=== PATIENT | male | born 1995 | race Caucasian/White ===

== ENCOUNTER 2025-06-26 09:38 | Emergency (ER) | payer BC, SELFPAY ==
[2025-06-26 09:40] VITALS: BP 119/58; PULSE 61; RESP 16; TEMP 36.4; O2SAT 100; BMI 21.9
--- NOTE | 2025-06-26 10:12 | ED_ITS ---
HPI - Abdominal Pain 2 General: Chief Complaint: Abdominal Pain Stated Complaint: R Side ABD Pain Time Seen by Provider: 06/26/25 10:12 History of Present Illness: 30-year-old male presents emergency room with complaint of right sided abdominal pain that began last night. He has noticed up with movements or coughing and gets quite a bit worse. It initially was vaguely on the right side it is more focal to the right lower quadrant now. Does not notice any dysuria urgency or frequency, no hematuria. No hematochezia melena hematemesis coffee-ground emesis. No history of nephrolithiasis. Associated Symptoms: Denies chills, dysuria, fever(s), nausea and vomiting Related Data Previous Rx's ?Medication ?Instructions ?Recorded promethazine 25 mg tablet 25 mg PO Q6H PRN nausea and 06/26/25 vomiting #20 tabs Allergies Allergy/AdvReac Type Severity Reaction Status Date / Time No Known Allergies Allergy Verified 06/26/25 09:46 Review of Systems 2 Const: Denies: fever(s) or chills Card: Denies: chest pain Resp: Denies: dyspnea GI: Reports: abdominal pain; Denies: nausea or vomiting : Denies: dysuria, urinary frequency or urinary urgency Musc: Denies: neck pain or back pain Skin/Breast: Denies: rash Physical Exam 2 Const: GENERAL APPEARANCE: cooperative ORIENTATION/CONSCIOUSNESS: Yes awake, Yes oriented to person, Yes oriented to place and Yes oriented to time HENMT: COMMON NORMALS: normocephalic, atraumatic and hearing grossly normal bilaterally HEAD & SCALP: normocephalic and atraumatic Resp: COMMON NORMALS: normal respiratory effort, No retractions, No use of accessory muscles and clear to auscultation bilaterally AUSCULTATION: clear to auscultation bilaterally Cardio: COMMON NORMALS: regular rate, regular rhythm and No murmurs present (Cardio) RATE: regular rate RHYTHM: regular rhythm GI: COMMON NORMALS: Soft to palpation and No hepatosplenomegaly present A USCULTATION: Yes normoactive bowel sounds PALPATION: Yes Soft to palpation, No Tenderness to palpation present (GI), No Guarding due to palpation present (GI) and Yes No hepatosplenomegaly present Extremity: COMMON NORMALS: normal to inspection, capillary refill normal, no clubbing, cyanosis or edema, no calf tenderness and no pedal edema Neuro: SENSORIUM/ORIENTATION: Yes oriented to person, Yes oriented to place and Yes oriented to time Skin: COMMON NORMALS: no rashes or lesions noted GENERAL SKIN EXAM: no rashes or lesions noted Course 2 Vital Signs: Vital signs: Vital Signs Temperature 97.6 F 06/26/25 09:40 Pulse Rate 54 L 06/26/25 12:07 Respiratory Rate 17 06/26/25 12:07 Blood Pressure 121/71 06/26/25 12:07 Pulse Oximetry 100 06/26/25 12:07 Oxygen Delivery Me thod Room Air 06/26/25 10:16 MDM - Abdominal Pain Medical Decision Making Medical decision making Social determinants: None I reviewed the patient's medical record. I reviewed the patient's current home meds. Alternate historians: None Differential diagnosis: Acute appendicitis, bowel obstruction, enteritis Lab Review: Labs reviewed white count 13.3 with a slight left shift chemistry panel was normal urine did not show any signs of acute cystitis no hematuria Imaging: CT abdomen no acute appendicitis fluid-filled loops of small bowel suggestive of enteritis Assessment of risk Level of risk: Low Hospitalization considerations: Consideration for hospitalization pending CT concern about acute appendicitis Reexamination: Unchanged Assessment and plan: Reviewed findings with the patient. White count not elevated CT does not show acute appendicitis shows signs of enteritis. Clear liquid diet advance as tolerated return if has further problems. Lab Data 06/26/25 10:05 06/26/25 10:05 Labs/Radiology: Radiology Impressions Abdomen/Pelvis CT 06/26/25 10:24 IMPRESSION: 1. No renal obstruction or perinephric stranding. 2. Normal appendix. 3. Increased fluid in the small bowel although no obstruction. Consider acute enteritis. 4. Normal appearance of the gallbladder. 5. Mild splenomegaly. Laboratory Results WBC 13.39 10^3/uL (3.29-11.43) H 06/26/25 10:05 RBC 5.19 10^6/uL (3.85-5.65) 06/26/25 10:05 Hgb 15.70 g/dL (11.27-16.99) 06/26/25 10:05 Hct 44.5 % (37-53) 06/26/25 10:05 MCV 85.7 fl (82-101) 06/26/25 10:05 MCH 30.3 pg (27-33) 06/26/25 10:05 MCHC 35.3 g/dL (30-55) 06/26/25 10:05 RDW 11.9 % (12.1-15.1) L 06/26/25 10:05 Plt Count 213 10^3/cmm (157-399) 06/26/25 10:05 MPV 10.6 fL (7.4-10.4) H 06/26/25 10:05 Neut % (Auto) 80.3 % 06/26/25 10:05 Lymph % (Auto) 12.5 % 06/26/25 10:05 [place] % (Auto) 6.1 % 06/26/25 10:05 Eos % (Auto) 0.7 % 06/26/25 10:05 Baso % (Auto) 0.2 % 06/26/25 10:05 Neut # (Auto) 10.74 10^3/uL (1.8-7.7) H 06/26/25 10:05 Lymph # (Auto) 1.7 10^3/uL (0.8-4.8) 06/26/25 10:05 [place] # (Auto) 0.8 10^3/uL (0.2-0.9) 06/26/25 10:05 Eos # (Auto) 0.1 10^3/uL (0.0-0.8) 06/26/25 10:05 Baso # (Auto) 0.0 10^3/uL (0.0-0.1) 06/26/25 10:05 Nucleated RBC % (auto) 0 % 06/26/25 10:05 Nucleated RBCs # 0.0 /100WBC 06/26/25 10:05 Sodium 139 mmol/L (136-145) 06/26/25 10:05 Potassium 4.0 mmol/L (3.5-5.1) 06/26/25 10:05 Chloride 101 mmol/L (98-107) 06/26/25 10:05 Carbon Dioxide 27 mmol/L (22-29) 06/26/25 10:05 Anion Gap 15.0 (5-19) 06/26/25 10:05 BUN 13 mg/dL (6-20) 06/26/25 10:05 Creatinine 0.8 mg/dL (0.7-1.2) 06/26/25 10:05 GFR Calculation 114.3 mL/min (90-130) 06/26/25 10:05 Glucose 95 mg/dL (65-115) 06/26/25 10:05 Calculated Osmolality 288 mOsm/kg (285-295) 06/26/25 10:05 Calcium 9.5 mg/dL (8.5-10.5) 06/26/25 10:05 Total Bilirubin 0.8 mg/dL (0.15-1.2) 06/26/25 10:05 AST 17 U/L (0-40) 06/26/25 10:05 ALT 8 U/L (0-41) 06/26/25 10:05 Alkaline Phosphatase 65 U/L (40-130) 06/26/25 10:05 Total Protein 7.5 g/dL (6.6-8.7) 06/26/25 10:05 Albumin 5.0 g/dL (3.5-5.2) 06/26/25 10:05 Globulin 2.5 g/dL (1.3-4.6) 06/26/25 10:05 Lipase 14 U/L (13-60) 06/26/25 10:05 Urine Color Yellow (Yellow) 06/26/25 10:05 Urine Appearance Clear (CLEAR) 06/26/25 10:05 Urine pH 8.0 (5-7) A 06/26/25 10:05 Ur Specific [place] 1.011 (1.005-1.030) 06/26/25 10:05 Urine Protein Negative (Negative) 06/26/25 10:05 Urine Glucose (UA) Negative (Normal) 06/26/25 10:05 Urine Ketones Negative (Negative) 06/26/25 10:05 Urine Blood Negative (Negative) 06/26/25 10:05 Urine Nitrate Negative (Negative) 06/26/25 10:05 Urine Bilirubin Negative (Negative) 06/26/25 10:05 Urine Urobilinogen 1.0 mg/dL (Negative) 06/26/25 10:05 Ur Leukocyte Esterase Negative (Negative) 06/26/25 10:05 Urine RBC 0-2 /hpf (0-2) 06/26/25 10:05 Urine WBC 0-5 /hpf (0-5) 06/26/25 10:05 Ur Squamous Epith Cells 0-5 /hpf (0-5) 06/26/25 10:05 Amorphous Sediment Not Reportable 06/26/25 10:05 Urine Bacteria None seen /hpf (NONE) 06/26/25 10:05 Hyaline Casts 0-4 /lpf H 06/26/25 10:05 All radiology interpretation(s) finalized by discharge Discharge Plan Discharge Patient Disposition: Home Clinical Impression: Gastroenteritis Condition: Stable Prescriptions: New promethazine 25 mg tablet 25 mg PO Q6H PRN (Reason: nausea and vomiting) Qty: 20 0RF Discharge Orders: Discharge ED (Routine); Ordered 06/26/25 Ordered By: Vlad Sneed Discharge Diet: Clear Liquid Discharge Activity: Increase activity as tolerated Patient Instructions: Gastroenteritis (ED), Abdominal Pain (ED), Opioid Safety, Pain Management, Patient Portal & Charles Instructions Activity Restrictions/Additional Instructions: Thank you for choosing [facility] for your healthcare needs today. It is very important that you follow up as instructed or that you return to the Emergency Department should you have concerns or if your condition changes or worsens in any way. Emergency department visits are focused on emergent conditions, in some cases you may require further evaluation on an outpatient basis. You were seen in the emergency room with complaint of abdominal pain there was a mild elevation in your white count CT did not show any acute appendicitis. There is signs of irritation of the bowel (gastroenteritis). Recommend clear diet for 24 to 48 hours and advance as tolerated you are given promethazine to use as needed. (Please note that included in your discharge packet is information concerning opioid safety and pain management. This information is given to all patients were discharged from the ER regardless of their discharge diagnosis or the medicines they usually take or are prescribed.) Print Language: Yemeni Coding Level of Care Code ED Jewel Bearing Turner for Radha Gavin
[2025-06-26 10:16] VITALS: BP 117/71; PULSE 57; RESP 16; O2SAT 100
[2025-06-26 10:22] LABS: Hematocrit 44.5 % (37-53); Hemoglobin 15.70 g/dL (11.27-16.99); Mean Corpuscular HGB Conc 35.3 g/dL (30-55); Mean Corpuscular Hemoglobin 30.3 pg (27-33); Mean Corpuscular Volume 85.7 fl (82-101); Nucleated Red Blood Cells % 0 %; Platelet Count 213 10^3/cmm (157-399); Red Blood Count 5.19 10^6/uL (3.85-5.65); White Blood Count 13.39 10^3/uL (3.29-11.43)
--- NOTE | 2025-06-26 10:24 | CT_ITS ---
WS: [id number] CT ABDOMEN AND PELVIS WITH CONTRAST HISTORY: RLQ abd pain TECHNIQUE: Imaging performed of the abdomen and pelvis with IV contrast. Single phase imaging of the abdomen. Coronal and sagittal reformats are submitted. All CT scans at [facility] use at least one of these dose optimization techniques: automated exposure control; mA and/or kV adjustment per patient size (includes targeted exams where dose is matched to clinical indication); or iterative reconstruction. IV CONTRAST: Omnipaque 350; 100 mL IV. Oral contrast: No DLP: 458.93 mGy.cm COMPARISON: None available. Lower thorax: Lung bases are clear. Heart is normal size. Small hiatal hernia. Liver/biliary system: Normal size liver with mild periportal edema. Normal portal vein. No intrahepatic duct dilatation or mass. Gallbladder: Normal. No gallstones or wall thickening. No pericholecystic fluid. Pancreas: Normal size pancreas and pancreatic duct. No adjacent inflammation. Spleen: Spleen is mildly enlarged at 14.4 cm in length. No mass. Adrenal glands: Normal. Right kidney: Normal. Left kidney: Normal. Aorta: Normal. Lymphadenopathy: None. Free fluid: None. GI tract: Stomach is not distended. No small bowel obstruction but there is increased fluid in portions of the small bowel and mild hyperemia of the wall. The appendix is identified and does appear normal. No significant inflammation. No colon obstruction. Abdominal wall: Unremarkable abdominal wall. No hernia. Pelvis: No free fluid or adenopathy within the pelvis. Urinary bladder is well distended. No free fluid in the pelvis. Bones: Unremarkable. CT/CT abdomen pelvis w con* [id number] IMPRESSION: 1. No renal obstruction or perinephric stranding. 2. Normal appendix. 3. Increased fluid in the small bowel although no obstruction. Consider acute enteritis. 4. Normal appearance of the gallbladder. 5. Mild splenomegaly.
[2025-06-26 10:43] LABS: Glucose Urine UA Negative (Normal); Nitrate Urine Negative (Negative); Specific Gravity, Urine 1.011 (1.005-1.030)
[2025-06-26 10:48] LABS: Add Urine Microscopic? YES
[2025-06-26] MEDS: iohexol 350 mg/mL 500 mL Btl (per mL) IV (11:03)
[2025-06-26 11:20] LABS: Alanine Aminotransferase 8 U/L (0-41); Albumin Level 5.0 g/dL (3.5-5.2); Alkaline Phosphatase 65 U/L (40-130); Anion Gap 15.0 (5-19); Aspartate Amino Transferase 17 U/L (0-40); Blood Urea Nitrogen 13 mg/dL (6-20); Calcium 9.5 mg/dL (8.5-10.5); Carbon Dioxide 27 mmol/L (22-29); Chloride 101 mmol/L (98-107); Globulin 2.5 g/dL (1.3-4.6); Glucose 95 mg/dL (65-115); Lipase 14 U/L (13-60); Osmolality Calculated 288 mOsm/kg (285-295); Potassium 4.0 mmol/L (3.5-5.1); Sodium 139 mmol/L (136-145); Total Protein 7.5 g/dL (6.6-8.7)
[2025-06-26 11:46] VITALS: BP 106/61; O2SAT 98
[2025-06-26 12:07] VITALS: BP 121/71; PULSE 54; RESP 17; O2SAT 100
== END 2025-06-26 12:08 | disposition home or self-care (01) ==
PROVIDERS: Emergency Provider Family Medicine
DX: K52.9 Noninfective gastroenteritis and colitis, unspecified (principal)
CPT/HCPCS: 36415; 74177; 80053; 81001; 83690; 85025; 99285; J7030